=== PATIENT | male | born 1940 | race African-American/Black ===

== ENCOUNTER 2023-06-18 10:49 | Inpatient (IN) | payer OTHER ==
[~2023-06-18] VITALS: Ht 177.8 cm; Wt 117.0 kg
[2023-06-18 11:19] LABS: BASOPHILS # (AUTO) 0.1 K/uL (0.0-0.2); EOSINOPHILS # (AUTO) 0.3 K/uL (0.0-0.7); EOSINOPHILS % (AUTO) 2.5 % (0.0-6.0); HEMATOCRIT 40 % (39-51); HEMOGLOBIN 13.2 g/dL (13.5-17.5); LYMPHOCYTES # (AUTO) 2.1 K/uL (0.8-4.8); LYMPHOCYTES % (AUTO) 19.9 % (20.0-44.0); MEAN CORPUSCULAR HEMOGLOBIN 32 PG (26.0-33.0); MEAN CORPUSCULAR HGB CONC 33 g/dl (31.0-36.0); MEAN CORPUSCULAR VOLUME 98 fL (80-96); MONOCYTES # (AUTO) 1.4 K/uL (0.1-1.30); NEUTROPHILS # (AUTO) 6.8 K/uL (1.8-8.9); NEUTROPHILS % (AUTO) 63.6 % (43.0-81.0); PLATELET COUNT (AUTO) 230 K/uL (150-450); RED BLOOD CELL COUNT(AUTO) 4.11 MIL/uL (4.5-6.0); RED CELL DISTRIBUTION WIDTH 15.7 % (11.5-15.0); WHITE BLOOD COUNT (AUTO) 10.7 K/uL (4.3-11.0)
[2023-06-18 11:50] LABS: CALCIUM, SERUM 9.5 mg/dL (8.5-10.1); CARBON DIOXIDE 31 mmol/L (21-32); CHLORIDE 99 mmol/L (98-107); CREATININE 2.3 mg/dL (0.6-1.3); GLUCOSE 126 mg/dL (74-106); POTASSIUM 3.8 mmol/L (3.5-5.1); SODIUM SERUM 141 mmol/L (136-145); UREA NITROGEN, BLOOD 43 mg/dL (7-18)
[2023-06-18] MEDS ORDERED: MORPHINE SULFATE INJ 4 MG/ML DISP.SYRIN ONE (11:54)
[2023-06-18] MEDS ORDERED: ONDANSETRON HCL/PF 4 MG/2 ML VIAL ONE (11:54)
[2023-06-18] MEDS ORDERED: ONDANSETRON HCL/PF 4 MG/2 ML VIAL IVP ONE (12:00)
[2023-06-18] MEDS ORDERED: MORPHINE SULFATE INJ 2 MG/ML DISP.SYRIN IV ONE (12:00)
[2023-06-18] MEDS ORDERED: DOCU-141 PO (14:06)
[2023-06-18] MEDS ORDERED: BUME2TAB7 PO (14:06)
[2023-06-18] MEDS ORDERED: FINA5TAB11 PO (14:06)
[2023-06-18] MEDS ORDERED: BISA10SU11 RC (14:06)
[2023-06-18] MEDS ORDERED: BISO10TA PO (14:06)
[2023-06-18] MEDS ORDERED: HYDR4TAB57 PO ×2 (14:06→14:07)
[2023-06-18] MEDS ORDERED: NA P133E RC (14:06)
[2023-06-18] MEDS ORDERED: POLY17PO4 PO (14:06)
[2023-06-18] MEDS ORDERED: AMIO200T5 PO (14:06)
[2023-06-18] MEDS ORDERED: LEFL20TA PO (14:06)
[2023-06-18] MEDS ORDERED: ATOR40TA PO (14:06)
[2023-06-18] MEDS ORDERED: ISOS30TA86 PO (14:07)
[2023-06-18] MEDS ORDERED: LACT10SO3 PO (14:07)
[2023-06-18] MEDS ORDERED: IPRA0.2S9 IH (14:07)
[2023-06-18] MEDS ORDERED: DABI150C PO (14:07)
[2023-06-18] MEDS ORDERED: NITR0.4T48 SL (14:07)
[2023-06-18] MEDS ORDERED: TRAZ-182 PO (14:07)
[2023-06-18] MEDS ORDERED: ONDA4TAB5 PO (14:07)
[2023-06-18] MEDS ORDERED: NALO4SPR (14:07)
[2023-06-18] MEDS ORDERED: ASCO-352 PO (14:07)
[2023-06-18] MEDS ORDERED: TAMS-12 PO (14:07)
[2023-06-18] MEDS ORDERED: MULT-447 PO (14:07)
[2023-06-18] MEDS ORDERED: LEVO25TA7 PO (14:07)
[2023-06-18] MEDS ORDERED: EMPA25TA PO (14:07)
[2023-06-18] MEDS ORDERED: MONT10TA22 PO (14:07)
[2023-06-18] MEDS ORDERED: PANT40TA2 PO (14:07)
[2023-06-18] MEDS ORDERED: INSU100V30 SQ (14:07)
[2023-06-18] MEDS ORDERED: PRED5TAB PO (14:09)
[2023-06-18] MEDS ORDERED: PRED20TA PO (14:16)
[2023-06-18] MEDS ORDERED: LACTULOSE 10 G/15 ML UDC (PYXIS) PO PRN (15:30)
[2023-06-18] MEDS ORDERED: ONDANSETRON HCL/PF 4 MG/2 ML VIAL IVP PRN (15:30)
[2023-06-18] MEDS ORDERED: BUMETANIDE INJ 6 MG in IV NS 0.9% 36 ML IV ONE (15:30)
[2023-06-18] MEDS ORDERED: HYDROMORPHONE HCL 2 MG TABLET PO PRN (15:30)
[2023-06-18] MEDS ORDERED: Z GUARD REMEDY 4 OZ OINT TP PRN (15:30)
[2023-06-18] MEDS ORDERED: ACETAMINOPHEN 325 MG TABLET PO PRN (15:30)
[2023-06-18] MEDS ORDERED: ZOLPIDEM TARTRATE 5 MG TABLET PO PRN (15:30)
[2023-06-18 16:00] VITALS: BP 101/64; TEMP 97.8; O2SAT 98
[2023-06-18 16:53] LABS: THYROID STIMULATING HORMONE 6.882 uIU/mL (0.358-3.74)
[2023-06-18] MEDS: DOCUSATE SODIUM 100 MG CAPSULE PO SCH (17:19)
[2023-06-18] MEDS: TAMSULOSIN 0.4 MG CAP.SR.24H PO SCH (17:19)
[2023-06-18] MEDS: DABIGATRAN ETEXILATE MESYLATE 75 MG CAPSULE PO SCH (17:24)
[2023-06-18 19:57] LABS: APPEARANCE,URINE CLEAR (CLEAR); BILIRUBIN,URINE NEGATIVE (NEGATIVE); BLOOD, URINE NEGATIVE Ery/uL (NEGATIVE); COLOR,URINE YELLOW (YELLOW); KETONES,URINE NEGATIVE (NEGATIVE); LEUKOCYTE ESTERASE ,URINE TRACE (NEGATIVE); NITRITE, URINE NEGATIVE (NEGATIVE); PH,URINE 5.5 (5.0-8.0); PROTEIN,URINE NEGATIVE (NEGATIVE); UGLUCOSE 3+ mg/dL (NEGATIVE); UROBILINOGEN,URINE 0.2 EU/dL (0.2)
[2023-06-18 20:00] VITALS: BP 101/56; TEMP 97.8; O2SAT 98
[2023-06-18 20:14] LABS: ADD URINE CULTURE NO; BACTERIA,URINE 1+ /HPF (None Seen); RBC,URINE NONE SEEN /HPF (0-2); SQUAMOUS EPITHELIAL CELL,UR None Seen /HPF (None Seen)
[2023-06-18 20:20] LABS: CREATININE, URINE 122.1 MG/DL (30.0-125.0)
[2023-06-18 20:57] LABS: EOSINOPHIL,URINE None Seen
[2023-06-18] MEDS: HYDROMORPHONE 1 MG/1 ML DISP.SYRIN IV PRN (21:08)
[2023-06-18] MEDS ORDERED: ATORVASTATIN 40 MG TABLET PO SCH (22:00)
[2023-06-18] MEDS ORDERED: MONTELUKAST SODIUM (10MG) 10 MG TABLET PO SCH (22:00)
[2023-06-18] MEDS: IPRATROPIUM NEB FS 0.5 MG/2.5 ML AMPUL.NEB IH SCH (23:53)
[2023-06-18 23:57] VITALS: O2SAT 99
[2023-06-19] VITALS (10 sets, daily range): BP systolic 116–137; BP diastolic 60–71; TEMP 97.2–98.7; O2SAT 93–99
[2023-06-19 05:40] LABS: BASOPHILS # (AUTO) 0.1 K/uL (0.0-0.2); BASOPHILS % (AUTO) 0.8 % (0.0-2.0); EOSINOPHILS # (AUTO) 0.3 K/uL (0.0-0.7); EOSINOPHILS % (AUTO) 3.7 % (0.0-6.0); HEMATOCRIT 42 % (39-51); HEMOGLOBIN 13.3 g/dL (13.5-17.5); LYMPHOCYTES # (AUTO) 1.6 K/uL (0.8-4.8); LYMPHOCYTES % (AUTO) 17.3 % (20.0-44.0); MEAN CORPUSCULAR HEMOGLOBIN 32 PG (26.0-33.0); MEAN CORPUSCULAR HGB CONC 32 g/dl (31.0-36.0); MEAN CORPUSCULAR VOLUME 99 fL (80-96); MONOCYTES # (AUTO) 1.4 K/uL (0.1-1.30); MONOCYTES % (AUTO) 15.1 % (2.0-12.0); NEUTROPHILS # (AUTO) 5.8 K/uL (1.8-8.9); NEUTROPHILS % (AUTO) 63.1 % (43.0-81.0); PLATELET COUNT (AUTO) 178 K/uL (150-450); RED BLOOD CELL COUNT(AUTO) 4.18 MIL/uL (4.5-6.0); RED CELL DISTRIBUTION WIDTH 16.1 % (11.5-15.0); WHITE BLOOD COUNT (AUTO) 9.2 K/uL (4.3-11.0)
[2023-06-19 05:56] LABS: CALCIUM, SERUM 9.5 mg/dL (8.5-10.1); CARBON DIOXIDE 30 mmol/L (21-32); CHLORIDE 101 mmol/L (98-107); CREATININE 2.1 mg/dL (0.6-1.3); GLUCOSE 115 mg/dL (74-106); PHOSPHORUS 4.6 mg/dL (2.5-4.9); POTASSIUM 4.1 mmol/L (3.5-5.1); SODIUM SERUM 141 mmol/L (136-145); UREA NITROGEN, BLOOD 51 mg/dL (7-18)
[2023-06-19] MEDS ORDERED: LEVOTHYROXINE SODIUM 25 MCG TABLET PO SCH (07:30)
[2023-06-19] MEDS: IPRATROPIUM NEB FS 0.5 MG/2.5 ML AMPUL.NEB IH SCH ×2 (07:46→15:43)
[2023-06-19] MEDS: DOCUSATE SODIUM 100 MG CAPSULE PO SCH ×2 (08:09→17:04)
[2023-06-19] MEDS: DABIGATRAN ETEXILATE MESYLATE 75 MG CAPSULE PO SCH ×2 (08:19→17:05)
[2023-06-19] MEDS: HYDROMORPHONE 1 MG/1 ML DISP.SYRIN IV PRN ×2 (08:26→14:53)
[2023-06-19 08:31] LABS: EOSINOPHILS % (MANUAL) 2 % (0-4); LYMPHOCYTES % (MANUAL) 17 % (16-48); MONOCYTES % (MANUAL) 12 % (0-11.0); NEUTROPHILS % (MANUAL) 69 (42-76); PLATELET ESTIMATE ADEQUATE
[2023-06-19 08:32] LABS: ANISOCYTOSIS 1+
[2023-06-19 08:33] LABS: OVALOCYTES OCC
[2023-06-19 08:36] LABS: ABG BASE EXCESS 4.4 mmol/L; ABG OXYGEN SATURATION 96.8 % (92.0-98.5); ABG PCO2 47.2 mmHg (35.0-45.0); ABG PH 7.418 (7.350-7.450); ABG PO2 97.6 mmHg (75.0-100.0); ABG TOTAL HEMOGLOBIN 13.7 G/dL (13.5-18.0); COHb 0.7 % (0.5-1.5); MetHb 0.3 % (0.0-1.5); O2Hb 95.8 % (94.0-97.0); SITE, ABG Right Brachial; VENT MODE, BG 2 LPM NC
[2023-06-19] MEDS ORDERED: FINASTERIDE (5 MG) 5 MG TABLET PO SCH (09:00)
[2023-06-19] MEDS ORDERED: AMIODARONE HCL 200 MG TABLET PO SCH (09:00)
[2023-06-19] MEDS ORDERED: LEFLUNOMIDE 20 MG TABLET PO SCH (09:00)
[2023-06-19] MEDS ORDERED: EMPAGLIFLOZIN 25 MG TABLET PO SCH (09:00)
[2023-06-19] MEDS ORDERED: ISOSORBIDE MONONITRATE (30MG) 30 MG TAB.SR.24H PO SCH (09:00)
[2023-06-19] MEDS: TAMSULOSIN 0.4 MG CAP.SR.24H PO SCH (17:04)
== END 2023-06-19 21:51 | disposition short-term general hospital (02) | DRG 280 ==
LOC: ER 10:56 → TELE-TD 14:54 → TELE1 06-19 09:45
PROVIDERS: ADMIT Nurse Practitioner Acute Care; ATTEND Nurse Practitioner Acute Care
DX: I13.0 Hypertensive heart and chronic kidney disease with heart failure and stage 1 through stage 4 chronic kidney disease, or unspecified chronic kidney disease (principal); I21.A1 Myocardial infarction type 2; I50.43 Acute on chronic combined systolic (congestive) and diastolic (congestive) heart failure; N17.0 Acute kidney failure with tubular necrosis; J96.21 Acute and chronic respiratory failure with hypoxia; D68.69 Other thrombophilia; N18.30 Chronic kidney disease, stage 3 unspecified; D64.9 Anemia, unspecified; E03.9 Hypothyroidism, unspecified; E66.01 Morbid (severe) obesity due to excess calories; E78.5 Hyperlipidemia, unspecified; G47.33 Obstructive sleep apnea (adult) (pediatric); G89.4 Chronic pain syndrome; I25.10 Atherosclerotic heart disease of native coronary artery without angina pectoris; I48.91 Unspecified atrial fibrillation; J44.9 Chronic obstructive pulmonary disease, unspecified; Z95.2 Presence of prosthetic heart valve; Z87.891 Personal history of nicotine dependence; Z95.1 Presence of aortocoronary bypass graft; Z99.81 Dependence on supplemental oxygen; Z20.822 Contact with and (suspected) exposure to COVID-19; N40.0 Benign prostatic hyperplasia without lower urinary tract symptoms; K44.9 Diaphragmatic hernia without obstruction or gangrene; E11.22 Type 2 diabetes mellitus with diabetic chronic kidney disease; M48.00 Spinal stenosis, site unspecified; M19.90 Unspecified osteoarthritis, unspecified site; Z68.37 Body mass index [BMI] 37.0-37.9, adult; Z79.4 Long term (current) use of insulin; N28.1 Cyst of kidney, acquired
CPT/HCPCS: 36415; 36600; 71045-TC; 76770-TC; 80048-TC; 80061-TC; 81001; 82533; 82570-TC; 82803-TC; 83735-TC; 83880; 84100-TC; 84300-TC; 84439-TC; 84443-TC; 84484-TC; 85025-TC; 87081-TC; 93307-TC; 94799-TC; A4223; C9803; G0378; J1170; J2270; J2405; J3490; J7050